=== PATIENT | male | born 1975 | race Caucasian/White ===

== ENCOUNTER 2016-11-15 22:14 | Emergency (ER) | payer OTHER ==
[2016-11-15 22:35] VITALS: BP 140/71; PULSE 90; RESP 20; TEMP 98.9; O2SAT 95
[2016-11-15] MEDS ORDERED: SODIUM CHLORIDE 0.9% FLUSH 5 ML FLUSH IVF PRN (23:30)
[2016-11-15 23:45] LABS: AUTOMATED NEUTROPHIL # 3.5 TH/MM3 (1.8-7.7); BASOPHIL # 0.1 TH/MM3 (0-0.2); EOSINOPHIL # 0.3 TH/MM3 (0-0.4); EOSINOPHIL % 4.4 % (0.0-4.0); HEMATOCRIT 41.8 % (39.0-51.0); HEMO FLAGS DIFF FINAL; LYMPH % 41.5 % (9.0-44.0); LYMPHOCYTE # 3.1 TH/MM3 (1.0-4.8); MEAN CELL VOLUME 93.3 FL (80.0-100.0); MEAN CORPUSCULAR HEMOGLOBIN 32.2 PG (27.0-34.0); MEAN CORPUSCULAR HGB CONC 34.5 % (32.0-36.0); NEUT % 47.1 % (16.0-70.0); PLATELET COUNT 184 TH/MM3 (150-450); RED BLOOD COUNT 4.48 MIL/MM3 (4.50-5.90); RED CELL DISTRIBUTION WIDTH 13.6 % (11.6-17.2); WHITE BLOOD COUNT 7.4 TH/MM3 (4.0-11.0)
--- NOTE | 2016-11-15 23:57 | RADRPT ---
EXAM DATE/TIME: 11/15/2016 23:45 [facility] COMPARISON: No previous studies available for comparison. INDICATIONS : Chest pain. MEDICAL HISTORY : None. SURGICAL HISTORY : None. ENCOUNTER: Initial ACUITY: 1 day PAIN SCORE: 0/10 LOCATION: Bilateral chest FINDINGS: A single view of the chest demonstrates the lungs to be symmetrically aerated without evidence of mas s, infiltrate or effusion. The cardiomediastinal contours are unremarkable. Osseous structures are intact. CONCLUSION: 1. No acute cardiopulmonary disease. Alec Arteaga MD on November 15, 2016 at 23:56 Board Certified Radiologist. This report was verified electronically.
--- NOTE | 2016-11-15 23:58 | RADRPT ---
EXAM DATE/TIME: 11/15/2016 23:47 [facility] COMPARISON: CHEST SINGLE AP, November 15, 2016, 23:45. INDICATIONS : Foreign body. MEDICAL HISTORY : None. SURGICAL HISTORY : None. ENCOUNTER: Initial ACUITY: 1 day PAIN SCORE: 0/10 LOCATION: abdomen, all quadrants. FINDINGS: Supine view of the abdomen was performed. The abdominal bowel gas pattern is normal. No abnormal ma sses, calcifications, or organomegaly is seen. The osseous structures are unremarkable. CONCLUSION: 1. No evidence of obstruction. No foreign body is identified. Alec Arteaga MD on November 15, 2016 at 23:56 Board Certified Radiologist. This report was verified electronically.
[2016-11-16 00:06] LABS: ANION GAP 11 MEQ/L (5-15); BICARBONATE 24.4 MEQ/L (21.0-32.0); BLOOD UREA NITROGEN 8 MG/DL (7-18); CHLORIDE 107 MEQ/L (98-107); CREATINE KINASE 782 U/L (39-308); GLOMERULAR FILTRATION RATE 105 ML/MIN (>89); SODIUM (NA) 142 MEQ/L (136-145)
[2016-11-16 00:07] LABS: POTASSIUM 4.3 MEQ/L (3.5-5.1)
[2016-11-16 00:19] LABS: CKMB 10.2 NG/ML (0.5-3.6)
--- NOTE | 2016-11-16 01:13 | PD ---
HPI Chief Complaint: Medical Clearance Time Seen by Provider: 22:45 Travel History International Travel<30 days: No Contact w/Intl Traveler<30days: No Traveled to known affect area: No History of Present Illness HPI Is a 41-year-old male who was arrested first allegedly simple battery tonight presents the emergency department aggravated with complaints of left shoulder pain from "police officers placing him in handcuffs". Patient also states that he's swallowed a bunch of heroin tonight. Patient's only complaint currently is anterior chest wall pain. He does have a history of smoking no cardiac disease. Shortly after taking the history patient was heard same to the police officers "see he is going to keep me overnight". Patient denies abdominal pain nausea vomiting diarrhea headache injury neck injury. PFS Past Medical History Diminished Hearing: No Past Surgical History Ear Surgery: Yes Social History Alcohol Use: Yes (OCCASIONALLY BEER) Tobacco Use: Yes (ONE PPD) Substance Use: No Allergies-Medications (Allergen,Severity, Reaction): Coded Allergies: No Known Allergies (Verified , 11/15/16) Reported Meds & Prescriptions Reported Meds & Active Scripts Active No Active Prescriptions or Reported Medications Review of Systems Except as stated in HPI: all other systems reviewed are Neg Physical Exam Narrative GENERAL: Well-developed well-nourished, aggravated and upset but nontoxic appearance. SKIN: Warm and dry. No bruising or laceration on his person. HEAD: Atraumatic. Normocephalic. EYES: Pupils equal and round. No scleral icterus. No injection or drainage. ENT: No nasal bleeding or discharge. Mucous membranes pink and moist. NECK: Trachea midline. No JVD. CARDIOVASCULAR: Regular rate and rhythm. No murmur appreciated. RESPIRATORY: No accessory muscle use. Clear to auscultation. Breath sounds equal bilaterally. GASTROINTESTINAL: Abdomen soft, non-tender, nondistended. Hepatic and splenic margins not palpable. MUSCULOSKELETAL: No obvious deformities. No clubbing. No cyanosis. No edema. There is no tenderness no bruising no laceration no limited range of motion of the left shoulder and left elbow or left wrist. Right upper bilateral lower extremities are atraumatic. CTL spine nontender and no step-off. Pelvis stable. NEUROLOGICAL: Awake and alert. No obvious cranial nerve deficits. Motor grossly within normal limits. Normal speech. PSYCHIATRIC: Appropriate mood and affect; insight and judgment normal. Data Data Last Documented VS Vital Signs Date Time Temp Pulse Resp B/P Pulse Ox O2 Delivery O2 Flow Rate FiO2 11/15/16 22:35 98.9 90 20 140/71 95 Orders Electrocardiogram (11/15/16 23:19) Basic Metabolic Panel (Bmp) (11/15/16 23:19) Ckmb (Isoenzyme) Profile (11/15/16 23:19) Complete Blood Count With Diff (11/15/16 23:19) Magnesium (Mg) (11/15/16 23:19) Troponin I (11/15/16 23:19) Chest, Single Ap (11/15/16 23:19) Ecg Monitoring (11/15/16 23:19) Bilateral Bp Monitoring (11/15/16 23:19) Iv Access Insert/Monitor (11/15/16 23:19) Oximetry (11/15/16 23:19) Oxygen Administration (11/15/16 23:19) Sodium Chloride 0.9% Flush (Ns Flush) (11/15/16 23:30) Abdomen, Kub Only (11/15/16 ) CKMB (11/15/16 23:20) CKMB% (11/15/16 23:20) Labs Laboratory Tests Test 11/15/16 23:20 White Blood Count 7.4 TH/MM3 Red Blood Count 4.48 MIL/MM3 Hemoglobin 14.4 GM/DL Hematocrit 41.8 % Mean Corpuscular Volume 93.3 FL Mean Corpuscular Hemoglobin 32.2 PG Mean Corpuscular Hemoglobin 34.5 % Concent Red Cell Distribution Width 13.6 % Platelet Count 184 TH/MM3 Mean Platelet Volume 8.9 FL Neutrophils (%) (Auto) 47.1 % Lymphocytes (%) (Auto) 41.5 % Monocytes (%) (Auto) 6.0 % Eosinophils (%) (Auto) 4.4 % Basophils (%) (Auto) 1.0 % Neutrophils # (Auto) 3.5 TH/MM3 Lymphocytes # (Auto) 3.1 TH/MM3 Monocytes # (Auto) 0.4 TH/MM3 Eosinophils # (Auto) 0.3 TH/MM3 Basophils # (Auto) 0.1 TH/MM3 CBC Comment DIFF FINAL Differential Comment Sodium Level 142 MEQ/L Potassium Level 4.3 MEQ/L Chloride Level 107 MEQ/L Carbon Dioxide Level 24.4 MEQ/L Anion Gap 11 MEQ/L Blood Urea Nitrogen 8 MG/DL Creatinine 0.81 MG/DL Estimat Glomerular Filtration 105 ML/MIN Rate Random Glucose 78 MG/DL Calcium Level 8.1 MG/DL Magnesium Level 2.0 MG/DL Total Creatine Kinase 782 U/L Creatine Kinase MB 10.2 NG/ML Creatine Kinase MB % 1.3 % Troponin I LESS THAN 0.02 NG/ML MDM Medical Decision Making Medical Screen Exam Complete: Yes Emergency Medical Condition: Yes Interpretation(s) EKG shows normal sinus rhythm with a normal axis normal R-wave progression. There is sinus arrhythmia. No concerning ST-T changes. Intervals within normal limits. This normal EKG. Differential Diagnosis ACS unlikely, AMI unlikely, traumatic injury to the left shoulder is highly unlikely by clinical exam, pneumonia unlikely, drug packing, drug stuffing. Narrative Course Patient roomed in the emergency department, he was observed for a total of 3 hours in the emergency department and he has had no somnolence. In fact he remains at a heightened level of alertness and has been conversing quite angrily with the patrol officer at his bedside. He has been moving his shoulder up in the air dramatically multiple times. Waiting his hand. He appears to have suffered no acute traumatic injury. His secondary complaint of chest pain he is quite atypical for ACS his EKG is completely normal and his troponin is negative. After observation in the emergency department he is medically stable for long term at this time. I have released him to the officer. Diagnosis Primary Impression: Chest pain Qualified Code: R07.9 - Chest pain, unspecified type Additional Instructions: Patient was observed in the emergency department for 3 hours, had no onset of sedation. He is medically stable for long term at this time. X-ray was obtained and did not show any packets consistent with drug muleing. Scripts No Active Prescriptions or Reported Meds Disposition: [address] LAW ENFORCEMNT Condition: Stable Oracio Fregoso MD Nov 16, 2016 01:13
--- NOTE | 2016-11-16 14:12 | EKG ---
Date Performed: 11/15/2016 Time Performed: 23:21:15 PTAGE: 41 years EKG: Sinus rhythm WITH SINUS ARRHYTHMIA NORMAL ECG NO PREVIOUS TRACING DOCTOR: Cory Graf Interpretating Date/Time 11/16/2016 14:10:23
== END 2016-11-16 01:25 | disposition home or self-care (01) ==
LOC: NEPA 22:14 → NEPC 11-16 01:25
DX: R07.9 Chest pain, unspecified (principal); I49.8 Other specified cardiac arrhythmias; F17.200 Nicotine dependence, unspecified, uncomplicated
CPT/HCPCS: 71010; 74000; 80048; 82550; 82552; 83735; 84484; 85025; 93005

== ENCOUNTER 2017-09-16 13:11 | Emergency (ER) | payer SELFPAY ==
[~2017-09-16] VITALS: Ht 172.7 cm; Wt 68.0 kg
[2017-09-16 13:37] VITALS: BP 132/81; PULSE 80; RESP 15; TEMP 98.2; O2SAT 98
--- NOTE | 2017-09-16 13:39 | PD ---
HPI Chief Complaint: drug ingestion Time Seen by Provider: 13:35 Travel History International Travel<30 days: No Contact w/Intl Traveler<30days: No Traveled to known affect area: No History of Present Illness HPI The patient is a 41-year-old male who presents to the emergency department via EMS after he was found sleeping outside. EMS states when they arrived the patient's GCS was 14, is now a GCS of 15. The patient states he smoked K2 earlier today. He also smoked regular marijuana earlier today according to EMS. The patient denies any heroin use or alcohol use. He denies any physical complaints and states he did not want to be brought to the emergency department. He denies any chest pain, shortness breath, nausea, vomiting, or abdominal pain. The patient is requested to leave the emergency department. He is alert and oriented 5. PFSH Past Medical History Diminished Hearing: No Past Surgical History Ear Surgery: Yes Social History Alcohol Use: Yes (OCCASIONALLY BEER) Tobacco Use: Yes (ONE PPD) Substance Use: Yes Allergies-Medications (Allergen,Severity, Reaction): Coded Allergies: No Known Allergies (Verified , 11/15/16) Reported Meds & Prescriptions Reported Meds & Active Scripts Active No Active Prescriptions or Reported Medications Review of Systems Except as stated in HPI: all other systems reviewed are Neg General / Constitutional: No: Fever HENT: No: Headaches Cardiovascular: No: Chest Pain or Discomfort Respiratory: No: Shortness of Breath Gastrointestinal: No: Nausea, Vomiting, Abdominal Pain Neurologic: No: Weakness Psychiatric: Positive: Substance Abuse Physical Exam Narrative GENERAL: Awake, alert, nontoxic-appearing 41-year-old male who appears his stated age and is in no acute respiratory distress. SKIN: Focused skin assessment warm/dry. HEAD: Atraumatic. Normocephalic. EYES: Pupils equal and round. 3 mm bilateral and reactive. ENT: No nasal bleeding or discharge. Mucous membranes pink and moist. NECK: Trachea midline. No JVD. CARDIOVASCULAR: Regular rate and rhythm. No murmur appreciated. RESPIRATORY: No accessory muscle use. Few scattered wheezes. GASTROINTESTINAL: Abdomen soft, non-tender, nondistended. Hepatic and splenic margins not palpable. MUSCULOSKELETAL: No obvious deformities. No clubbing. No cyanosis. No edema. NEUROLOGICAL: Awake and alert. No obvious cranial nerve deficits. Motor grossly within normal limits. Normal speech. Nonfocal. 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 PSYCHIATRIC: Appropriate mood and affect; insight and judgment normal. MDM Medical Decision Making Medical Screen Exam Complete: Yes Emergency Medical Condition: Yes Medical Record Reviewed: Yes Differential Diagnosis Differential diagnosis includes recreational drug use, drug ingestion, case to overdose, polysubstance abuse. Narrative Course The patient is awake and alert 5, is nonfocal on exam, denies any complaints. The patient states he does not want to be in the emergency department, has a GCS of 15, and answers questions appropriately. Therefore, patient will be discharged per his wishes. Diagnosis Primary Impression: Recreational drug use Additional Instructions: Follow-up with Ward Mercado as needed. Stop using recreational drugs. Return if symptoms worsen or progress. Med/Other Pt SpecificInfo: No Change to Meds Scripts No Active Prescriptions or Reported Meds Disposition: 01 DISCHARGE HOME Condition: Stable Jeffrey Magdaleno MD Sep 16, 2017 13:39
== END 2017-09-16 13:56 | disposition home or self-care (01) ==
LOC: NEPD 13:11
DX: T40.7X1A Poisoning by cannabis (derivatives), accidental (unintentional), initial encounter (principal); F17.200 Nicotine dependence, unspecified, uncomplicated
CPT/HCPCS: 99283